=== PATIENT | female | born 1975 | race Asian ===

== ENCOUNTER 2019-03-25 16:46 | Emergency (ER) | payer OTHER ==
[2019-03-25 16:56] VITALS: BP 186/95; TEMP 97
== END 2019-03-25 16:56 | disposition home or self-care (01) ==
LOC: ED 16:46
DX: R03.0 Elevated blood-pressure reading, without diagnosis of hypertension (principal)
CPT/HCPCS: 99281

== ENCOUNTER 2020-07-07 19:26 | Emergency (ER) | payer OTHER ==
[~2020-07-07] VITALS: Ht 170.2 cm; Wt 111.1 kg
[2020-07-07 19:35] VITALS: TEMP 98.5
[2020-07-07 21:05] VITALS: BP 153/86
== END 2020-07-07 21:05 | disposition home or self-care (01) ==
LOC: ED 19:26
DX: H10.89 Other conjunctivitis (principal); B96.89 Other specified bacterial agents as the cause of diseases classified elsewhere
CPT/HCPCS: 99282

== ENCOUNTER 2021-01-29 10:17 | Outpatient (CLI) | payer OTHER | END 2021-01-29 20:10 | disposition home or self-care (01) | LOC: INF 10:17 | PROVIDERS: ATTEND Internal Medicine | DX: Z23 Encounter for immunization (principal) | CPT/HCPCS: 96372 ==

== ENCOUNTER 2021-02-20 10:10 | Outpatient (CLI) | payer OTHER | END 2021-02-20 19:24 | disposition home or self-care (01) | LOC: INF 10:10 | PROVIDERS: ATTEND Internal Medicine | DX: Z23 Encounter for immunization (principal) | CPT/HCPCS: 96372 ==